=== PATIENT | female | born 1980 | race Caucasian/White ===

== ENCOUNTER 2016-11-07 21:53 | Emergency (ER) | payer OTHER ==
[2016-11-07] MEDS ORDERED: ONDANSETRON 4 MG/2 ML VIAL IVP STA (23:16)
[2016-11-07] MEDS ORDERED: ONDANSETRON 4 MG/2 ML VIAL ONE ×2 (23:21→23:26)
[2016-11-08] MEDS ORDERED: PROMETHAZINE INJ 12.5 MG in SODIUM CHLORIDE 0.9% 50 ML IV STA (00:02)
[2016-11-08] MEDS ORDERED: PROMETHAZINE 25 MG/1 ML VIAL ONE (00:03)
== END 2016-11-08 01:50 | disposition home or self-care (01) ==
DX: R07.89 Other chest pain (principal); F17.200 Nicotine dependence, unspecified, uncomplicated

== ENCOUNTER 2018-09-12 10:54 | Emergency (ER) | payer OTHER ==
[2018-09-12 11:20] LABS: BASOPHILS # (AUTO) 0.1 10^3/uL (0.0-0.1); BASOPHILS % (AUTO) 0.7 %; EOSINOPHILS # (AUTO) 0.1 10^3/uL (0.0-0.7); EOSINOPHILS % (AUTO) 0.8 %; HGB - HEMOGLOBIN 13.4 g/dL (12.0-16.0); LYMPHOCYTES # (AUTO) 1.9 10^3/uL (1.5-3.5); LYMPHOCYTES % (AUTO) 26.9 %; MEAN CORPUSCULAR HEMOGLOBIN 32.5 pg (27.0-31.0); MEAN CORPUSCULAR HGB CONC 34.8 g/dL (32.0-36.0); MEAN CORPUSCULAR VOLUME 93.4 fL (81.0-99.0); MONOCYTES # (AUTO) 0.4 10^3/uL (0.0-1.0); MONOCYTES % (AUTO) 5.4 %; NEUTROPHILS # (AUTO) 4.7 10^3/uL (1.5-6.6); NEUTROPHILS % (AUTO) 66.2 %; PLT - PLATELET COUNT 333 10^3/uL (130-450); RED BLOOD COUNT 4.13 10^6/uL (4.20-5.40); RED CELL DISTRIBUTION WIDTH 13.3 % (12.0-15.0); WHITE BLOOD COUNT 7.1 x10^3/uL (4.8-10.8)
[2018-09-12 11:34] LABS: ALBUMIN 4.5 g/dL (3.2-5.5); ALBUMIN/GLOBULIN RATIO 1.6 (1.0-2.2); BILIRUBIN,TOTAL 0.7 mg/dL (0.2-1.0); CALCIUM 9.4 mg/dL (8.5-10.3); CREATININE 0.6 mg/dL (0.4-1.0); TOTAL PROTEIN 7.4 g/dL (6.7-8.2)
--- NOTE | 2018-09-12 12:25 | ED Physician Documentation ---
PD HPI CHEST PAIN - Stated complaint Stated Complaint: CHEST PX - Chief complaint Chief Complaint: Cardiac - History obtained from History obtained from: Patient - History of Present Illness Timing - onset: Other (6:30 AM by left anterior chest pain radiating between the shoulder planes into the left arm that is a sharp pain. She is not short of breath with it, there is no associated nausea, dizziness, weakness, leg pain or swelling. She did return from [place] by plane about 4 days ago. She is not on control and denies a possibility of .) Review of Systems Constitutional: denies: Fever, Chills Nose: denies: Rhinorrhea / runny nose, Congestion Cardiac: reports: Chest pain / pressure. 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 HEENT: None Psych: Anxiety Musculoskeletal: None Derm: None - Past Surgical History Past Surgical History: Yes General: Cholecystectomy, Appendectomy - Present Medications Home Medications: Ambulatory Orders Medication Instructions Recorded Confirmed Antihistamine 09/12/18 - Allergies Allergies/Adverse Reactions: Allergies Allergy/AdvReac Type Severity Reaction Status Date / Time cefazolin sodium * Allergy Respiratory Verified 09/12/18 11:00 [From [facility]] Penicillins Allergy Respiratory Verified 09/12/18 11:00 - Social History Does the pt smoke?: No Smoking Status: Never smoker Does the pt drink ETOH?: Yes Does the pt have substance abuse?: No - Family History Family history: reports: Non contributory - Immunizations Immunizations are current?: Yes - POLST Patient has POLST: No PD ED PE NORMAL - Vitals Vital signs reviewed: Yes - General General: Alert and oriented X 3, No acute distress - HEENT HEENT: PERRL, EOMI - Neck Neck: Supple, no meningeal sign, No bony TTP - Cardiac Cardiac: RRR, No murmur, Other (Mild tenderness to palpation left costochondral junction) - Respiratory Respiratory: No respiratory distress, Clear bilaterally - Abdomen Abdomen: Soft, Non tender - Back Back: No CVA TTP, No spinal TTP - Derm Derm: Normal color, Warm and dry - Extremities Extremities: No edema, No calf tenderness / cord - Neuro Neuro: Alert and oriented X 3, Normal speech - Psych Psych: Normal mood, Normal affect Results - Vitals Vitals: Vital Signs - 24 hr 09/12/18 09/12/18 09/12/18 10:55 11:03 12:29 Temperature 36.9 C 36.6 C Heart Rate 108 H 84 75 Respiratory 20 16 16 Rate Blood Pressure 131/95 H 131/95 H 117/83 H O2 Saturation 99 100 100 Oxygen O2 Source Room air - EKG (time done) 1105 Rate: Rate (enter#) (89) Rhythm: NSR [place]: Normal Intervals: Normal MN QRS: Normal Ischemia: Non specific changes (Flat T waves in the anterior precordium) Compare to prior EKG: Unchanged from prior EKG Computer interpretation: Agree with computer - Labs Labs: Laboratory Tests 09/12/18 09/12/18 09/12/18 11:11 11:11 11:11 WBC 7.1 RBC 4.13 L Hgb 13.4 Hct 38.6 MCV 93.4 MCH 32.5 H MCHC 34.8 RDW 13.3 Plt Count 333 MPV 7.0 L Neut # (Auto) 4.7 Lymph # (Auto) 1.9 [place] # (Auto) 0.4 Eos # (Auto) 0.1 Baso # (Auto) 0.1 Absolute Nucleated RBC 0.00 Nucleated RBC % 0.0 D-Dimer Sodium 136 Potassium 3.6 Chloride 102 Carbon Dioxide 26 Anion Gap 8.0 BUN 14 Creatinine 0.6 Estimated GFR (MDRD) 113 Glucose 124 H Calcium 9.4 Total Bilirubin 0.7 AST 18 ALT 19 Alkaline Phosphatase 45 Troponin I < 0.04 Total Protein 7.4 Albumin 4.5 Globulin 2.9 Albumin/Globulin Ratio 1.6 Lipase 37 Urine Color Urine Clarity Urine pH Ur Specific [place] Urine Protein Urine Glucose (UA) Urine Ketones Urine Occult Blood Urine Nitrite Urine Bilirubin Urine Urobilinogen Ur Leukocyte Esterase Ur Microscopic Review Urine Culture Comments Urine HCG, Qual 09/12/18 09/12/18 09/12/18 11:11 13:09 13:28 WBC RBC Hgb Hct MCV MCH MCHC RDW Plt Count MPV Neut # (Auto) Lymph # (Auto) [place] # (Auto) Eos # (Auto) Baso # (Auto) Absolute Nucleated RBC Nucleated RBC % D-Dimer < 200.0 L Sodium Potassium Chloride Carbon Dioxide Anion Gap BUN Creatinine Estimated GFR (MDRD) Glucose Calcium Total Bilirubin AST ALT Alkaline Phosphatase Troponin I < 0.04 Total Protein Albumin Globulin Albumin/Globulin Ratio Lipase Urine Color LT. YELLOW Urine Clarity CLEAR Urine pH 5.5 Ur Specific [place] 1.010 Urine Protein NEGATIVE Urine Glucose (UA) NEGATIVE Urine Ketones NEGATIVE Urine Occult Blood NEGATIVE Urine Nitrite NEGATIVE Urine Bilirubin NEGATIVE Urine Urobilinogen 0.2 (NORMAL) Ur Leukocyte Esterase NEGATIVE Ur Microscopic Review NOT INDICATED Urine Culture Comments NOT INDICATED Urine HCG, Qual NEGATIVE PD MEDICAL DECISION MAKING - ED course ED course: 38-year-old woman with atypical chest and back pain. She is not in extremis and pain is not severe. Normal mediastinum on chest x-ray negative d-dimer. Delta troponins in the emergency department both undetectable and EKG unchanged from prior, she has been in the emergency department for similar complaints in the remote past. Departure - Departure Disposition: 01 Home, Self Care Clinical Impression: Atypical chest pain Back pain Qualifiers: Back pain location: thoracic back pain Chronicity: acute Back pain laterality: midline Qualified Code(s): M54.6 - Pain in thoracic spine Condition: Good Record reviewed to determine appropriate education?: Yes Instructions: ED Chest Pain NonCardiac Comments: Ibuprofen as needed for symptoms. Return for new or worsening symptoms. Follow-up with your doctor regardless, next available appointment.
--- NOTE | 2018-09-12 12:43 | XRAY Report ---
Reason: cp Procedure Date: 09/12/2018 Accession Number: [id number] / [id number] Procedure: XR - Chest 1 View X-Ray CPT Code: 11512 FULL RESULT: EXAM: CHEST RADIOGRAPHY EXAM DATE: 09/12/2018 12:05 PM. CLINICAL HISTORY: Chest pain. COMPARISON: CHEST 2 VIEW PA/LAT 11/07/2016 11:20 PM. TECHNIQUE: 1 view. FINDINGS: Lungs/Pleura: No focal opacities evident. No pleural effusion. No pneumothorax. Mediastinum: Within exam limitations, the cardiomediastinal contour is normal. Other: None. IMPRESSION: No acute cardiopulmonary abnormality. RADIA
[2018-09-12 13:17] LABS: BILIRUBIN,URINE NEGATIVE (NEGATIVE); GLUCOSE, URINE (UA) NEGATIVE (NEGATIVE); KETONES,URINE (UA) NEGATIVE (NEGATIVE); LEUKOCYTE ESTERASE, URINE NEGATIVE (NEGATIVE); NITRITE,URINE NEGATIVE (NEGATIVE); OCCULT BLOOD,URINE NEGATIVE (NEGATIVE); PH,URINE 5.5 PH (5.0-7.5); PROTEIN,URINE NEGATIVE (NEGATIVE); UROBILINOGEN,URINE 0.2 (NORMAL) E.U./dL (NORMAL)
[2018-09-12 13:19] LABS: CLARITY,URINE CLEAR (CLEAR); HCG UR QUAL NEGATIVE
[2018-09-12 14:06] VITALS: BP 121/70
== END 2018-09-12 14:05 | disposition home or self-care (01) ==
LOC: ED 10:54
DX: R07.89 Other chest pain (principal); M54.6 Pain in thoracic spine; M79.602 Pain in left arm; R94.31 Abnormal electrocardiogram [ECG] [EKG]
CPT/HCPCS: 36415; 71045; 80053; 81001; 81003; 81025; 83690; 84484; 85025; 85379; 87086; 93005; 99282; 99284

== ENCOUNTER 2018-09-22 23:52 | Emergency (ER) | payer OTHER ==
[2018-09-22 23:56] VITALS: BP 110/67
[2018-09-23] MEDS ORDERED: DEXAMETHASONE 10 MG/ML VIAL PO STA (00:09)
[2018-09-23] MEDS ORDERED: IBUPROFEN 800 MG TABLET PO STA (00:09)
--- NOTE | 2018-09-23 00:11 | ED Physician Documentation ---
PD HPI URI - Stated complaint Stated Complaint: RT EAR PRESSURE,RINGINE - Chief complaint Chief Complaint: Heent - History obtained from History obtained from: Patient, Family - History of Present Illness Timing - onset: How many days ago (4) Timing duration: Days (4) Timing details: Gradual onset Pain level max: 7 Pain level now: 5 Associated symptoms: Ear pain (Right ear pain developed tonight), Nasal congestion, Rhinorrhea. No: Fever, Chills, Sinus pain, Sore throat, Swollen nodes, Dry cough Contributing factors: Sick contact. No: Immunocompromised, Unimmunized, COPD / asthma Improves by: Nothing Worsened by: Other (nothing) Similar symptoms before: Has not had sx before Recently seen: Not recently seen Review of Systems Constitutional: denies: Fever, Chills Nose: reports: Rhinorrhea / runny nose Throat: denies: Sore throat Respiratory: reports: Cough. 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 HEENT: None Psych: Anxiety Musculoskeletal: None Derm: None - Past Surgical History Past Surgical History: Yes General: Cholecystectomy, Appendectomy - Present Medications Home Medications: Ambulatory Orders Medication Instructions Recorded Confirmed Antihistamine 09/12/18 Ppi Medication 09/22/18 Azithromycin [Zithromax] 0 mg PO DAILY #6 tablet 09/23/18 Ibuprofen [Motrin] 800 mg PO Q8H PRN #30 tablet 09/23/18 hydrOXYzine HCl [Hydroxyzine HCl] 25 mg PO BID PRN 09/23/18 09/23/18 - Allergies Allergies/Adverse Reactions: Allergies Allergy/AdvReac Type Severity Reaction Status Date / Time cefazolin sodium * Allergy Respiratory Verified 09/22/18 23:56 [From [facility]] Penicillins Allergy Respiratory Verified 09/22/18 23:56 - Social History Does the pt smoke?: No Smoking Status: Never smoker Does the pt drink ETOH?: Yes Does the pt have substance abuse?: No - Immunizations Immunizations are current?: Yes - POLST Patient has POLST: No PD ED PE NORMAL - Vitals Vital signs reviewed: Yes - General General: Alert and oriented X 3, No acute distress - HEENT HEENT: Moist mucous membranes, Pharynx benign, Other (Left tympanic membrane is normal. Right tympanic membrane is erythematous, dull, bulging with loss of landmarks. Purulent fluid present.) - Neck Neck: Supple, no meningeal sign, No adenopathy - Cardiac Cardiac: RRR, Strong equal pulses - Respiratory Respiratory: No respiratory distress, Clear bilaterally - Abdomen Abdomen: Soft, Non tender, Non distended - Derm Derm: Warm and dry - Neuro Neuro: Alert and oriented X 3 Results - Vitals Vitals: Vital Signs - 24 hr 09/22/18 23:55 Temperature 36.5 C Heart Rate 99 Respiratory 18 Rate Blood Pressure 110/67 O2 Saturation 99 Oxygen O2 Source Room air PD MEDICAL DECISION MAKING - ED course Complexity details: considered differential, d/w patient ED course: 38-year-old female with a right acute otitis media. Will place on azithromycin as she is allergic to Ancef and penicillins, anaphylactic. She is well- appearing, nontoxic. Afebrile. Given Decadron and Motrin here. Patient counseled regarding signs and symptoms for which I believe and urgent re- evaluation would be necessary. Patient with good understanding of and agreement to plan and is comfortable going home at this time This document was made in part using voice recognition software. While efforts are made to proofread this document, sound alike and grammatical errors may occur. Departure - Departure Disposition: 01 Home, Self Care Clinical Impression: Right acute otitis media Condition: Good Instructions: ED Otitis Media Acute Adult Follow-Up: JOI LOW [Primary Care Provider] - Within 1 week (if not better) Prescriptions: Azithromycin [Zithromax] 0 mg PO DAILY #6 tablet Ibuprofen [Motrin] 800 mg PO Q8H PRN #30 tablet PRN Reason: PAIN &/OR FEVER Comments: Do not take the hydroxyzine while taking the azithromycin. Return if you worsen. Take all antibiotics until gone Discharge Date/Time: 09/23/18 00:18
[2018-09-23] MEDS ORDERED: CHERRY SYRUP 10 ML UDC PO ONE (00:16)
== END 2018-09-23 00:18 | disposition home or self-care (01) ==
LOC: ED 23:52
DX: H66.91 Otitis media, unspecified, right ear (principal)
CPT/HCPCS: 99283; A9270

== ENCOUNTER 2018-09-24 05:55 | Emergency (ER) | payer OTHER ==
[2018-09-24] MEDS ORDERED: DEXAMETHASONE 10 MG/ML VIAL PO STA (06:04)
[2018-09-24] MEDS ORDERED: ACETAMINOPHEN 325 MG TABLET PO STA (06:04)
[2018-09-24] MEDS ORDERED: PSEUDOEPHEDRINE 30 MG TABLET PO STA (06:05)
--- NOTE | 2018-09-24 06:06 | ED Physician Documentation ---
History of Present Illness - Stated complaint Stated Complaint: RT EAR PAIN - Chief complaint Chief Complaint: Heent - History obtained from History obtained from: Patient - History of Present Illness Timing: How many days ago (several) Pain level max: 6 Pain level now: 5 Improved by: decadron Worsened by: nothing - Additonal information Additional information: 38-year-old female seen here 2 days ago and treated for a right acute otitis media. Alden better after dexamethasone, started antibiotics yesterday. This morning started having right ear pain again. Came back in for evaluation. Took Motrin an hour ago. She is not having fevers. No sore throat. Does have rhinorrhea and congestion. 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 HEENT: None Psych: Anxiety Musculoskeletal: None Derm: None - Past Surgical History Past Surgical History: Yes General: Cholecystectomy, Appendectomy - Present Medications Home Medications: Ambulatory Orders Medication Instructions Recorded Confirmed Antihistamine 09/12/18 Ppi Medication 09/22/18 Azithromycin [Zithromax] 0 mg PO DAILY #6 tablet 09/23/18 Ibuprofen [Motrin] 800 mg PO Q8H PRN #30 tablet 09/23/18 hydrOXYzine HCl [Hydroxyzine HCl] 25 mg PO BID PRN 09/23/18 09/23/18 Cetirizine HCl/Pseudoephedrine 1 each PO BID PRN #30 tab.er.12h 09/24/18 [Zyrtec-D Tablet] - Allergies Allergies/Adverse Reactions: Allergies Allergy/AdvReac Type Severity Reaction Status Date / Time cefazolin sodium * Allergy Respiratory Verified 09/22/18 23:56 [From [facility]] Penicillins Allergy Respiratory Verified 09/22/18 23:56 - Social History Does the pt smoke?: No Smoking Status: Never smoker Does the pt drink ETOH?: Yes Does the pt have substance abuse?: No - Immunizations Immunizations are current?: Yes - POLST Patient has POLST: No PD ED PE NORMAL - Vitals Vital signs reviewed: Yes - General General: Alert and oriented X 3, No acute distress - HEENT HEENT: Moist mucous membranes, Pharynx benign, Other (Left tympanic membrane is normal. Right tympanic membrane is erythematous, dull, bulging with loss of landmarks. Fluid present.) - Neck Neck: Supple, no meningeal sign - Derm Derm: Warm and dry - Neuro Neuro: Alert and oriented X 3 Results - Vitals Vitals: Vital Signs - 24 hr 09/24/18 09/24/18 06:00 06:14 Temperature 36.7 C Heart Rate 93 78 Respiratory 16 16 Rate Blood Pressure 135/68 H 126/70 O2 Saturation 98 99 Oxygen O2 Source Room air PD MEDICAL DECISION MAKING - ED course Complexity details: reviewed old records, considered differential, d/w patient ED course: 38-year-old female being treated for otitis media. Recurrent right ear pain. Given a second dose of dexamethasone, will add decongestants to her. Given pseudoephedrine here. She is well-appearing, nontoxic. Afebrile. Tolerating p.o. without difficulty. Patient counseled regarding signs and symptoms for which I believe and urgent re-evaluation would be necessary. Patient with good understanding of and agreement to plan and is comfortable going home at this time This document was made in part using voice recognition software. While efforts are made to proofread this document, sound alike and grammatical errors may occur. Departure - Departure Disposition: 01 Home, Self Care Clinical Impression: Right acute otitis media Condition: Good Instructions: ED Otitis Media Acute Adult Follow-Up: JOI LOW [Primary Care Provider] - Within 1 week Prescriptions: Cetirizine HCl/Pseudoephedrine [Zyrtec-D Tablet] 1 each PO BID PRN #30 tab.er.12h PRN Reason: nasal congestion Comments: Continue your antibiotics at home. We will add on a decongestant to help drain your ear as well. Discharge Date/Time: 09/24/18 06:15
[2018-09-24 06:15] VITALS: BP 126/70
== END 2018-09-24 06:15 | disposition home or self-care (01) ==
LOC: ED 05:55
DX: H66.91 Otitis media, unspecified, right ear (principal); R09.81 Nasal congestion; R05 Cough
CPT/HCPCS: 99283; A9270

== ENCOUNTER 2018-10-18 23:28 | Emergency (ER) | payer OTHER ==
--- NOTE | 2018-10-19 00:28 | ED Physician Documentation ---
PD HPI HEENT - Stated complaint Stated Complaint: R/L EAR PAIN - Chief complaint Chief Complaint: Heent - History obtained from History obtained from: Patient - History of Present Illness Timing - onset: How many months ago (1) Timing - details: Gradual onset Pain level now: 5 Location: Right ear, Left ear Improves: Nothing Worsens: Other (no exacerbating factors) Associated symptoms: No: Fever, Congestion, Facial swelling, Headache, Cough Recently seen: Emergency Dept - Additional information Additional information: c/o one month of sensation of fullness and muffled hearing bilateral ears; "they're all clogged" (per patient). Initially, symptoms were limited to right ear but eventually both ears are involved. She was T+R twice from this ED for same, completed zithromax and has had steroids for this, but has not improved. She has not made appointment with PMD for this yet. Review of Systems Constitutional: denies: Fever, Chills, Sweats Ears: reports: Loss of hearing (decreased/muffled hearing bilaterally). 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 HEENT: None Psych: Anxiety Musculoskeletal: None Derm: None - Past Surgical History Past Surgical History: Yes General: Cholecystectomy, Appendectomy - Present Medications Home Medications: Ambulatory Orders Medication Instructions Recorded Confirmed Antihistamine 09/12/18 Ppi Medication 09/22/18 Azithromycin [Zithromax] 0 mg PO DAILY #6 tablet 09/23/18 Ibuprofen [Motrin] 800 mg PO Q8H PRN #30 tablet 09/23/18 hydrOXYzine HCl [Hydroxyzine HCl] 25 mg PO BID PRN 09/23/18 09/23/18 Cetirizine HCl/Pseudoephedrine 1 each PO BID PRN #30 tab.er.12h 09/24/18 [Zyrtec-D Tablet] Clindamycin HCl [Clindamycin 300MG 300 mg PO Q6H #28 capsule 10/19/18 CAP] predniSONE [Prednisone] 40 mg PO DAILY 4 Days #8 tablet 10/19/18 - Allergies Allergies/Adverse Reactions: Allergies Allergy/AdvReac Type Severity Reaction Status Date / Time cefazolin sodium * Allergy Respiratory Verified 10/18/18 23:35 [From [facility]] Penicillins Allergy Respiratory Verified 10/18/18 23:35 - Social History Does the pt smoke?: No Smoking Status: Never smoker Does the pt drink ETOH?: Yes Does the pt have substance abuse?: No - Immunizations Immunizations are current?: Yes - POLST Patient has POLST: No PD ED PE NORMAL - Vitals Vital signs reviewed: Yes - General General: Alert and oriented X 3, No acute distress, Well developed/nourished - HEENT HEENT: Moist mucous membranes, Pharynx benign PD ED PE EXPANDED - HEENT HEENT: R TM red (mild erythema), R TM dull, L TM dull Results - Vitals Vitals: Vital Signs - 24 hr 10/18/18 10/19/18 23:32 00:58 Temperature 36.4 C L 36.2 C L Heart Rate 106 H 85 Respiratory 16 18 Rate Blood Pressure 112/79 93/74 O2 Saturation 97 97 Oxygen O2 Source Room air PD MEDICAL DECISION MAKING - ED course Complexity details: reviewed old records, considered differential, d/w patient Departure - Departure Disposition: 01 Home, Self Care Clinical Impression: Serous otitis media Qualifiers: Chronicity: acute Laterality: bilateral Recurrence: not specified as recurrent Qualified Code(s): H65.03 - Acute serous otitis media, bilateral Condition: Good Instructions: ED Otitis Media Serous Adult Follow-Up: JOI LOW [Primary Care Provider] - (Call in the morning to arrange for next available appointment) Prescriptions: Clindamycin HCl [Clindamycin 300MG CAP] 300 mg PO Q6H #28 capsule predniSONE [Prednisone] 40 mg PO DAILY 4 Days #8 tablet Discharge Date/Time: 10/19/18 00:54
[2018-10-19] MEDS ORDERED: DEXAMETHASONE 10 MG/ML VIAL PO STA (00:42)
[2018-10-19] MEDS ORDERED: CLINDAMYCIN 150 MG CAPSULE PO STA (00:42)
[2018-10-19] MEDS ORDERED: CHERRY SYRUP 10 ML UDC PO ONE (00:52)
[2018-10-19 00:58] VITALS: BP 93/74
== END 2018-10-19 00:54 | disposition home or self-care (01) ==
LOC: ED 23:28
DX: H65.03 Acute serous otitis media, bilateral (principal)
CPT/HCPCS: 99283; A9270